=== PATIENT | male | born 2000 | race Caucasian/White ===

== ENCOUNTER 2021-11-11 15:25 | Emergency (ER) | payer MEDICAID ==
[~2021-11-11] VITALS: Ht 172.7 cm; Wt 71.2 kg
[~2021-11-11 15:25] MED LIST: intuniv
[2021-11-11] MEDS ORDERED: KETOROLAC 30 MG/ML VIAL IVP ONE (15:45)
[2021-11-11 15:46] LABS: BASOPHILS # (AUTO) 0.1 10^3/uL (0.0-0.1); BASOPHILS % (AUTO) 1 % (0-10); EOSINOPHILS # (AUTO) 0.1 10^3/uL (0.0-0.3); EOSINOPHILS % (AUTO) 1 % (0-10); HEMATOCRIT 49 % (40-54); HEMOGLOBIN 16.6 g/dL (13.3-17.7); LYMPHOCYTES # (AUTO) 2.3 10^3/uL (1.0-4.0); LYMPHOCYTES % (AUTO) 21 % (12-44); MEAN CORPUSCULAR HEMOGLOBIN 30 pg (25-34); MEAN CORPUSCULAR HGB CONC 34 g/dL (32-36); MEAN CORPUSCULAR VOLUME 89 fL (80-99); MEAN PLATELET VOLUME 9.1 fL (9.0-12.2); MONOCYTES # (AUTO) 0.5 10^3/uL (0.0-1.0); MONOCYTES % (AUTO) 4 % (0-12); NEUTROPHILS % (AUTO) 73 % (42-75); PLATELET COUNT 334 10^3/uL (130-400)
--- NOTE | 2021-11-11 15:46 | ED Chest Pain ---
General Chief Complaint: Chest Pain Stated Complaint: ABNORMAL EKG Source: patient Exam Limitations: no limitations History of Present Illness Date Seen by Provider: Nov 11, 2021 Time Seen by Provider: 15:43 Initial Comments To ER by private vehicle from [facility] walk-in clinic with reports of abnormal EKG. He presented there with chest pain in the center of his chest only present when he lays flat and associated with shortness of breath when he lays flat. This is been present for 2 weeks and constant every time he lays down. No fevers chills cough or recent illness. No history of this. The EKG at [facility] showed concern for ST elevation so he was referred here to the emergency room. Timing/Duration: intermittent Severity/Quality: moderate Location: central Radiation: no radiation Activities at Onset: none ASA po JAVA CONSULTANT: No NTG SL JAVA CONSULTANT: No Allergies and Home Medications Allergies Coded Allergies: No Known Drug Allergies (Unverified , 10/27/14) Patient Home Medication List Home Medication List Reviewed: Yes [intuniv] , (Reported) Entered as Reported by: ROOPA GILBERT on 10/27/141930 Review of Systems Review of Systems Constitutional: see HPI EENTM: No Symptoms Reported Respiratory: No Symptoms Reported Cardiovascular: See HPI, Chest Pain Gastrointestinal: No Symptoms Reported Genitourinary: No Symptoms Reported Musculoskeletal: no symptoms reported Skin: no symptoms reported Psychiatric/Neurological: No Symptoms Reported Endocrine: No Symptoms Reported Hematologic/Lymphatic: No Symptoms Reported Past Xepgcqt-Oxwgam-Nsjkya Hx Immunizations Up To Date PED Vaccines UTD: Yes Seasonal Allergies Seasonal Allergies: No Past Medical History Reproductive Disorders: No ADD/ADHD Adverse Reaction/Blood Tranf: No Physical Exam Vital Signs Vital Signs - First Documented 11/11/21 15:27 Temp 37.0 Pulse 75 Resp 19 B/P (MAP) 127/80 (96) O2 Delivery Room Air Capillary Refill : Height, Weight, BMI Height: 4'10" Weight: 135lbs. oz. 61.705256xg; BMI Method:Stated General Appearance: No Apparent Distress, WD/WN HEENT: PERRL/EOMI, TMs Normal Respiratory: No Accessory Muscle Use, No Respiratory Distress Cardiovascular: Regular Rate, Rhythm, Normal Peripheral Pulses Gastrointestinal: Normal Bowel Sounds, Non Tender, Soft Extremity: Normal Capillary Refill, Normal Inspection Neurologic/Psychiatric: Alert, Oriented x3 Skin: Normal Color, Warm/Dry Progress/Results/Core Measures Results/Orders Lab Results Laboratory Tests Test 11/11/21 15:28 11/11/21 15:29 Range/Units D-Dimer 0.28 0.00-0.49 UG/ML White Blood Count 11.0 4.3-11.0 10^3/uL Red Blood Count 5.54 H 4.30-5.52 10^6/uL Hemoglobin 16.6 13.3-17.7 g/dL Hematocrit 49 40-54 % Mean Corpuscular Volume 89 80-99 fL Mean Corpuscular Hemoglobin 30 25-34 pg Mean Corpuscular Hemoglobin Concent 34 32-36 g/dL Red Cell Distribution Width 13.2 10.0-14.5 % Platelet Count 334 130-400 10^3/uL Mean Platelet Volume 9.1 9.0-12.2 fL Immature Granulocyte % (Auto) 0 % Neutrophils (%) (Auto) 73 42-75 % Lymphocytes (%) (Auto) 21 12-44 % Monocytes (%) (Auto) 4 0-12 % Eosinophils (%) (Auto) 1 0-10 % Basophils (%) (Auto) 1 0-10 % Neutrophils # (Auto) 8.0 H 1.8-7.8 10^3/uL Lymphocytes # (Auto) 2.3 1.0-4.0 10^3/uL Monocytes # (Auto) 0.5 0.0-1.0 10^3/uL Eosinophils # (Auto) 0.1 0.0-0.3 10^3/uL Basophils # (Auto) 0.1 0.0-0.1 10^3/uL Immature Granulocyte # (Auto) 0.0 0.0-0.1 10^3/uL Erythrocyte Sedimentation Rate 2 0-15 MM/HR Sodium Level 140 135-145 MMOL/L Potassium Level 3.8 3.6-5.0 MMOL/L Chloride Level 102 98-107 MMOL/L Carbon Dioxide Level 28 21-32 MMOL/L Anion Gap 10 5-14 MMOL/L Blood Urea Nitrogen 10 7-18 MG/DL Creatinine 0.85 0.60-1.30 MG/DL Estimat Glomerular Filtration Rate 128 BUN/Creatinine Ratio 12 Glucose Level 91 70-105 MG/DL Calcium Level 10.5 H 8.5-10.1 MG/DL Corrected Calcium 8.5-10.1 MG/DL Total Bilirubin 0.4 0.1-1.0 MG/DL Aspartate Amino Transf (AST/SGOT) 16 5-34 U/L Alanine Aminotransferase (ALT/SGPT) 22 0-55 U/L Alkaline Phosphatase 92 40-136 U/L Troponin I < 0.028 <0.028 NG/ML C-Reactive Protein High Sensitivity 0.31 0.00-0.50 MG/DL B-Type Natriuretic Peptide < 10.0 <100.0 PG/ML Total Protein 8.6 H 6.4-8.2 GM/DL Albumin 4.9 H 3.2-4.5 GM/DL My Orders Orders - JOSE JOHNSON APRN Cbc With Automated Diff (11/11/21 15:38) Hs C Reactive Protein (11/11/21 15:38) Erythrocyte Sedimentation Rate (11/11/21 15:38) Comprehensive Metabolic Panel (11/11/21 15:38) Ed Iv/Invasive Line Start (11/11/21 15:38) Ekg Tracing (11/11/21 15:38) Troponin I Lander (11/11/21 15:38) Bnp Swati (11/11/21 15:38) Chest 1 View, Ap/Pa Only (11/11/21 15:38) Ketorolac Injection (Toradol Injection) (11/11/21 15:45) Fibrin Degradation Products (11/11/21 15:46) Medications Given in ED Current Medications Medications Dose Ordered Sig/Eduardo Route Start Time Stop Time Status Last Admin Dose Admin Ketorolac Tromethamine 15 mg ONCE ONCE IVP 11/11/21 15:45 11/11/21 15:46 DC 11/11/21 15:52 15 MG Vital Signs/I&O 11/11/21 15:27 Temp 37.0 Pulse 75 Resp 19 B/P (MAP) 127/80 (96) O2 Delivery Room Air Departure Communication (Admissions) EKG shows diffuse minimal ST elevation no ST depression labs are unremarkable including inflammatory markers. Differential includes early repolarization vers us pericarditis. His symptoms sound like pericarditis. We will have him do some ibuprofen 800 every 8 hours for couple of days and see if this helps. Have him follow-up with cardiology. Impression Primary Impression: Chest pain Disposition: HOME, SELF-CARE Condition: Stable Departure-Patient Inst. Decision time for Depature: 17:04 Referrals: [facility] (PCP/Family) Primary Care Physician BRIANNA HANSEN MD, DAVID L JR, MD Patient Instructions: Chest Pain (DC) Add. Discharge Instructions: This chest pain that you are having could represent a pericarditis which is an inflammation of the sac around the heart. Your inflammatory labs are completely normal which would be unusual in a case of pericarditis. Treatment for that is a week or 2 of anti-inflammatories. Take ibuprofen 800 mg every 8 hours. Return to ER for any concerns. Call a jig and fixture repairer of your choosing for follow- up. Your EKG changes that [facility] saw could be related to this pericarditis or could be a normal variant called early repolarization. All discharge instructions reviewed with patient and/or family. Voiced understanding. JOSE JOHNSON APRN Nov 11, 2021 15:45
[2021-11-11 15:58] LABS: ALBUMIN 4.9 GM/DL (3.2-4.5); CHLORIDE 102 MMOL/L (98-107); POTASSIUM 3.8 MMOL/L (3.6-5.0); SODIUM 140 MMOL/L (135-145)
[2021-11-11 15:59] LABS: CALCIUM 10.5 MG/DL (8.5-10.1)
[2021-11-11 16:00] LABS: GLUCOSE 91 MG/DL (70-105); TOTAL PROTEIN 8.6 GM/DL (6.4-8.2)
[2021-11-11 16:02] LABS: BILIRUBIN,TOTAL 0.4 MG/DL (0.1-1.0); CARBON DIOXIDE 28 MMOL/L (21-32)
[2021-11-11 16:04] LABS: ALKALINE PHOSPHATASE 92 U/L (40-136); CREATININE SERUM 0.85 MG/DL (0.60-1.30); GFR ESTIMATED 128
--- NOTE | 2021-11-11 16:04 | Diagnostic Imaging Report ---
Indication: Chest pain Portable chest 3:36 PM There are postoperative changes from internal fixation of the upper thoracic spine. Heart size and pulmonary vascularity are normal. Lungs are clear. There are no effusions or pneumothoraces. IMPRESSION: No acute abnormalities in the chest Dictated by: Dictated on workstation # [id number]
[2021-11-11 16:05] LABS: BUN/CREATININE RATIO 12
[2021-11-11 16:07] LABS: ALANINE AMINOTRANSFERASE 22 U/L (0-55); ERYTHROCYTE SEDIMENTATION RATE 2 MM/HR (0-15)
[2021-11-11 17:20] VITALS: BP 136/95
== END 2021-11-11 17:20 | disposition home or self-care (01) ==
LOC: EDUNIT# 15:25 → ER 15:27
DX: R07.9 Chest pain, unspecified (principal)
CPT/HCPCS: 36415; 71045; 80053; 83880; 84484; 85025; 85379; 85652; 86141